=== PATIENT | female | born 1940 | race Caucasian/White ===

== ENCOUNTER → 2021-05-22 14:58 | Outpatient (CLI) | payer MEDICARE, MEDICAID, SELFPAY ==
--- NOTE | ~2021-05-22 | DEXA_ITS ---
Bone Density Report Name: KELL CARTER Age: 80 Sex: Female Ethnicity: Date of : 1940 Indication: postmenopausal; screening for osteoporosis; height loss; hysterectomy; Referring Provider: GABY DOWNS Study: Bone densitometry was performed. Exam Date: May 22, 2021 Accession number: [id number] Bone Density: Region BMD T-score Z-score Classification AP Spine (L1-L4) 0.938 -1.0 1.7 Normal Femoral Neck (Left) 0.682 -1.5 0.7 Osteopenia Total Hip (Left) 0.814 -1.1 1.0 Osteopenia Femoral Neck (Right) 0.697 -1.4 0.8 Osteopenia Total Hip (Right) 0.840 -0.8 1.2 Normal Total Hip Mean 0.827 -1.0 1.1 Normal World Health Organization criteria for BMD impression classify patients as: Normal (T-score at or above -1.0), Osteopenia (T-score between -1.0 and -2.5), or Osteoporosis (T-score at or below -2.5). 10-year Fracture Risk(1): Major Osteoporotic Fracture 13% Hip Fracture 3.0% Reported Risk Factors: [place] (), Neck BMD=0.682, BMI=33.4 (1) FRAX(R) Version 3.08. Fracture probability calculated for an untreated patient. Fracture probability may be lower if the patient has received treatment. Clinical Information Provided by Patient: Has used the following medications: Vitamin D, Calcium Has the following medical conditions: Hysterectomy, KIDNEY TRANSPLANT Patient maximum height was 63 Menopause Age: 39 Drinks caffeinated beverages Onset of menses at age 14 Number of children 4 Impression: The patient has low bone mass, based on the Left Femoral Neck T-score. The patient has an estimated ten-year risk of hip fracture of 3% and an estimated ten-year risk of major fracture of 13%, based on the WHO FRAX algorithm. Discussion: BONE DENSITY IS LOW AT ONE OR MORE SKELETAL SITES. THE PATIENT'S BMD AND CLINICAL RISK FACTORS CONTRIBUTE TO THIS PATIENT'S INCREASED RISK OF FRACTURE. This patient's lowest T-score is low at one or more skeletal sites. It meets the World Health Organization's (WHO) criteria for ?low bone mass? (T-score between -1.0 and -2.5). The patient's 10-year risk of hip fracture as calculated by FRAX exceeds the threshold where pharmacological therapy is recommended by the National Osteoporosis Foundation (NOF). However, all treatment decisions require clinical judgment and consideration of individual patient factors, including patient preferences, comorbidities, previous drug use, risk factors not captured in the FRAX model (e.g., frailty, falls, vitamin D deficiency, increased bone turnover, interval significant decline in bone density) and possible under or overestimation of fracture risk by FRAX. The patient should follow a healthful lifestyle (good nutrition with adequate calcium and vitamin D, and appropriate weight-bearing exercise). Follow-Up:
== END ==
PROVIDERS: PCP Pediatrics; Visit Provider Pediatrics
DX: Z78.0 Asymptomatic menopausal state (principal); M85.89 Other specified disorders of bone density and structure, multiple sites
CPT/HCPCS: 77080

== ENCOUNTER 2024-03-11 11:56 | Inpatient (IN) | payer MEDICARE, SELFPAY ==
[2024-03-11] VITALS (38 sets, daily range): BP systolic 119–159; BP diastolic 57–76; PULSE 60–72; RESP 13–21; TEMP 36.6–36.8; O2SAT 89–100; BMI 28.8
--- NOTE | ~2024-03-11 | XR_ITS ---
EXAMINATION: XR chest 1V portable DATE: 03/11/2024 12:31 INDICATION: Weakness. Dizziness. TECHNIQUE: A single frontal view of the chest was obtained. COMPARISON: Chest 2 views 08/16/2017 FINDINGS: There are airspace opacities in right lower lung zone and left mid and lower lung zones. Ca lcified right lung nodules and calcified right hilar lymph nodes are consistent with old granulomatou s disease. No pleural effusion or pneumothorax. The heart size is normal. There is a left chest wall pacer with leads in the right atrium and right ventricle. There are surgical clips in left axilla. IMPRESSION: 1. Airspace opacities in right lower lung zone and left mid and lower lung zones, consistent with ate lectasis versus pneumonia. Reviewed, dictated and finalized at location A. PLATER IMPRESSION: 1. Airspace opacities in right lower lung zone and left mid and lower lung zone s, consistent with atelectasis versus pneumonia.
--- NOTE | 2024-03-11 12:18 | ECG_ITS ---
Test Date: 2024-03-11 12:23:48 Measurements Intervals [place] Rate: 59 P: 0 AR: 0 QRS: -64 QRSD: 178 T: 107 QT: 522 QTc: 519 Interpretive Statements baseline atrial flutter ELECTRONIC VENTRICULAR PACEMAKER ABNORMAL RHYTHM ECG No previous ECG available for comparison Electronically Signed On 03-12-2024 09:56:39 [employer] by David Hernandez M.D.
[2024-03-11 13:16] LABS: Add Urine Microscopic? YES; Appearance Urine Cloudy (Clear); Bacteria Urine None Seen /hpf; Bilirubin Urine Negative (Negative); Blood Urine Negative (Negative); Color Urine Yellow (Yellow); Glucose Urine UA 1+ mg/dL (Negative); Ketones Urine Negative (Negative); Leukocyte Esterase Ur Trace LEU/UL (Negative); Nitrate Urine Negative (Negative); Non Pathogenic Casts 0-2; Protein Urine Negative (Negative); RBC Urine 0-2 /hpf (0-2); Specific Grav Ur 1.008 (1.001-1.035); Squamous Epithelial Cell Urine None Seen /hpf (Few); Urobilinogen Urine 0.2 mg/dL (<2.0); WBC Urine 0-5 /hpf (0-3); pH Urine 7.5 (5.0-9.0)
[2024-03-11] MEDS: MECLIZINE HCL 25 MG TABLET 50 MG PO (13:23)
[2024-03-11 13:42] LABS: Basophils Absolute Auto 0.1 K/mm3 (0.0-0.1); Basophils Percent Auto 0.6 % (0.2-1.2); Eosinophils Absolute Auto 0.1 K/mm3 (0-0.3); Eosinophils Percent Auto 0.8 % (0-4.4); Hematocrit 42.9 % (37.0-47.0); Hemoglobin 13.7 g/dL (12.0-15.0); Immature Granulocyte Absolute 0.03 K/mm3 (0.00-0.031); Immature Granulocyte Percent A 0.3 % (0-0.5); Lymphocytes Absolute Auto 1.41 K/mm3 (0.9-3.2); Mean Corpuscular HGB Conc 31.9 g/dl (32-36); Mean Corpuscular Hemoglobin 29.1 pg (26-34); Mean Corpuscular Volume 91.1 fl (80-100); Mean Platelet Volume 9.3 fl (7.4-10.4); Monocytes Absolute Auto 0.5 K/mm3 (0.1-0.6); Monocytes Percent Auto 4.8 % (2.6-8.5); Neutrophils Percent Auto 79.5 % (45.5-73.1); Platelet Count Result 328 k/mm3 (150-375); Red Blood Count 4.71 M/mm3 (4.2-5.4); Red Cell Distribution Width 14.1 % (11.5-14.5); White Blood Count 10.1 K/mm3 (4.5-10.0)
[2024-03-11 13:52] LABS: Alanine Aminotransferase 20 U/L (6-35); Albumin Level 4.2 g/dL (3.5-5.1); Alkaline Phosphatase 79 U/L (38-126); Anion Gap 5 mmol/L (4-12); Aspartate Amino Transferase 30 U/L (14-36); Bilirubin,Total 0.6 mg/dL (0.2-1.3); Blood Urea Nitrogen 18 mg/dL (7-17); Calcium 8.6 mg/dL (8.4-10.2); Carbon Dioxide 33 mmol/L (22-30); Chloride 96 mmol/L (98-107); Estimated Glomerular Filt Rate > 60; Glucose 81 mg/dL (65-110); Sodium 134 mmol/L (137-145)
--- NOTE | 2024-03-11 14:03 | ED.DIZZY ---
HPI - Dizziness General Chief Complaint: Dizziness Stated Complaint: dizzy/nausea Time Seen by Provider: 03/11/24 12:33 Source: patient and family Mode of arrival: EMS Limitations: language barrier (The patient is Czech-speaking) History of Present Illness HPI Narrative: This is an 83-year-old female, with history of kidney transplant and insulin-dependent diabetes, status post pacemaker placement for AFib on Eliquis, brought in by EMS from a grocery store for dizziness. The patient states she was seen by her primary care doctor recently for dizziness and prescribed meclizine. She has had only some relief with medication. She denies chest pain, shortness of breath, lightheadedness or loss of consciousness. She denies focal weakness, numbness or change/loss of vision/hearing. Related Data Home Medications ?Medication ?Instructions ?Recorded ?Confirmed ?Last Taken ?Type apixaban 5 mg tablet (Eliquis) 5 mg PO Q12H 03/11/24 03/11/24 03/10/24 History ascorbic acid (vitamin C) 500 mg 500 mg PO DAILY 03/11/24 03/11/24 Unknown History tablet (C-500) aspirin 81 mg capsule 81 mg PO DAILY 03/11/24 03/11/24 Unknown History atorvastatin 40 mg tablet 40 mg PO QPM 03/11/24 03/11/24 03/10/24 History blood sugar diagnostic (OneTouch 03/11/24 03/11/24 Unknown History Verio test strips) npomwdn-ooibhlqeb-wlkm 333 mg-133 1 tablet PO DAILY 03/11/24 03/11/24 Unknown History mg-5 mg tablet cholecalciferol (vitamin D3) 50 50 mcg PO DAILY 03/11/24 03/11/24 03/10/24 History mcg (2,000 unit) capsule (Vitamin D3) furosemide 20 mg tablet 40 mg PO DAILY 03/11/24 03/11/24 03/10/24 History gabapentin 300 mg capsule 300 mg PO HS 03/11/24 03/11/24 Unknown History insulin aspart U-100 100 unit/mL 7 unit subcut TID 03/11/24 03/11/24 Unknown History (3 mL) subcutaneous pen (Novolog FlexPen U-100 Insulin aspart) insulin degludec 100 unit/mL (3 50 unit subcut HS 03/11/24 03/11/24 Unknown History mL) subcutaneous pen (Tresiba FlexTouch U-100 insulin) lancets 33 gauge (OneTouch Delica 03/11/24 03/11/24 Unknown History Plus Lancet) losartan 25 mg tablet 25 mg PO DAILY 03/11/24 03/11/24 03/10/24 History magnesium 200 mg tablet 400 mg PO DAILY 03/11/24 03/11/24 Unknown History melatonin 5 mg tablet 5 mg PO HS 03/11/24 03/11/24 Unknown History metoprolol succinate 25 mg 25 mg PO Q12H 03/11/24 03/11/24 03/10/24 History tablet,extended release 24 hr mirabegron 50 mg tablet,extended 50 mg PO DAILY 03/11/24 03/11/24 Unknown History release 24 hr (Myrbetriq) multivitamin 1 tablet PO DAILY 03/11/24 03/11/24 03/10/24 History mycophenolate sodium 360 mg 360 mg PO Q12H 03/11/24 03/11/24 03/10/24 History tablet,delayed release omega 5-ujt-lsr-fish oil 1,000 mg 1 cap PO BID 03/11/24 03/11/24 Unknown History (120 mg-180 mg) capsule (Fish Oil) pantoprazole 40 mg tablet,delayed 40 mg PO DAILY 03/11/24 03/11/24 03/10/24 History release patiromer calcium sorbitex 8.4 8.4 g PO DAILY 03/11/24 03/11/24 Unknown History gram oral powder packet (Veltassa) semaglutide 0.25 mg or 0.5 mg (2 0.25 mg subcut WEEKLY 03/11/24 03/11/24 Unknown History mg/1.5 mL) subcutaneous pen injector (Ozempic) tacrolimus 0.5 mg capsule, 0.5 mg PO Q12H 03/11/24 03/11/24 03/10/24 History immediate-release tacrolimus 1 mg capsule, 1 mg PO Q12H 03/11/24 03/11/24 03/10/24 History immediate-release venlafaxine 150 mg 150 mg PO QPM 03/11/24 03/11/24 03/10/24 History capsule,extended release 24 hr Allergies Allergy/AdvReac Type Severity Reaction Status Date / Time Iodinated Contrast Media Allergy Unknown Hives/RASH Verified 03/11/24 18:18 Review of Systems Review of Systems: All systems reviewed & are unremarkable except as noted in HPI and below PMFSH Past Medical History Medical History Afib Diabetes mellitus Surgical History Surgical History Status post kidney transplant History of permanent cardiac pacemaker placement History of cardiac ablation for atrial fibrillation Family History Family History (Updated 03/11/24 @ 18:32 by Quintin Roche RN) Grandparent Cancer Grandparent Heart attack Heart disease Sibling Cancer Sibling Cancer Other Aneurysm Social History Social History Smoking status: Never smoker Alcohol intake: never Substance use: never Do You Feel Safe in your Home?: Yes Lack of Transportation: No Lack of Food: Never True Current Housing: I Have Housing Concerned About Future Housing: No Difficulty Paying Gas/Electric Bills: No Difficulty Paying for Meds: No Currently Unemployed: No Education: Never Attended/Kindergarten Only Difficulty w/ Childcare or Family Care: No Spiritual care concerns: No Exam Narrative: GENERAL: Well-developed, well-nourished, and in no acute distress. HEAD: Normocephalic, atraumatic. EYES: PERRLA and EOMI. Left-sided nystagmus ENT: Nares clear, no rhinorrhea or epistaxis. Mucous membranes moist. Oropharynx without tonsillar hypertrophy exudate or other lesions. Bilateral TMs pearly mcbride low bulging bilaterally, right greater than left NECK: Supple. No adenopathy or masses. No carotid bruits or JVD CHEST: Rales noted in the bilateral inferior posterior lung farr. No respiratory distress. No wheezes or rhonchi HEART: Regular rate and rhythm. No murmur heard. Normal peripheral pulses. ABDOMEN: Soft, nontender, nondistended, normal active bowel sounds. EXTREMITIES: Normal range of motion. No edema. SKIN: Warm, dry, no rash. NEURO: Alert and oriented x3. No focal deficit. Moving all 4 limbs spontaneously. HINTS exam elicits nystagmus with gaze to the left and is otherwise not concerning for central nystagmus. Cranial nerves 2-12 intact PSYCH: Normal mood and affect. Course Course Emergency Course: 14:00 - On arrival, staff noted the patient was hypoxic to 89% on room air. She was placed on 2 L O2. The patient was taken off of 2 L nasal cannula and observed. She was noted to desat to 87% with a good plus, then return to the mid 90s. BNP and troponin are pending, however I have increased suspicion for pneumonia. Will treat with antibiotics and discussed patient with hospitalist for admission. Patient's exam is not concerning for focal neural deficit. I am able to elicit nystagmus with extraocular movements. I suspect this is peripheral in nature. 15:16 - CBC demonstrates slightly elevated white blood cell count of 10.1 but is otherwise unremarkable. Chemistries demonstrate mildly elevated bicarb of 33, slightly elevated BNP of 1280 but is otherwise unremarkable, including a negative troponin. Urinalysis shows leukocyte esterase without other immediately concerning findings for a UTI. Chest x-ray shows changes concerning for pneumonia. EKG not concerning for ischemia. I discussed the patient with hospitalist, CLAUDE Cooper who accepts admission. Vital Signs Vital signs: Vital Signs Temperature 98.3 F 03/11/24 11:57 Pulse Rate 63 03/11/24 11:57 Respiratory Rate 17 03/11/24 11:57 Blood Pressure 119/57 L 03/11/24 11:57 Pulse Oximetry 89 L 03/11/24 11:57 Oxygen Delivery Room Air 03/11/24 11:57 Temperature 97.9 F 03/11/24 21:15 Pulse Rate 63 03/11/24 21:15 Respiratory Rate 16 03/11/24 21:15 Blood Pressure 158/67 H 03/11/24 21:15 Pulse Oximetry 97 03/11/24 21:15 Oxygen Delivery Nasal Cannula 03/11/24 17:40 Oxygen Flow Rate 2 03/11/24 17:40 MDM - Dizziness MDM Narrative Medical decision making narrative: Plan: Labs, imaging, EKG, troponin, reassess Differential Diagnosis Differential diagnosis: Likely benign paroxysmal positional vertigo and other (Viral upper respiratory infection, pneumonia, ACS, metabolic abnormality, Meniere's, other) Lab Data 03/11/24 13:34 03/11/24 13:34 Labs: Lab Results 03/11/24 03/11/24 03/11/24 Range/Units 13:05 13:34 13:34 WBC 10.1 H (4.5-10.0) K/mm3 RBC 4.71 (4.2-5.4) M/mm3 Hgb 13.7 (12.0-15.0) g/dL Hct 42.9 (37.0-47.0) % MCV 91.1 (80-100) fl MCH 29.1 (26-34) pg MCHC 31.9 L (32-36) g/dl RDW 14.1 (11.5-14.5) % Plt Count 328 (150-375) k/mm3 MPV 9.3 (7.4-10.4) fl Immature Gran % (Auto) 0.3 (0-0.5) % Neut % (Auto) 79.5 H (45.5-73.1) % Lymph % (Auto) 14.0 L (18.3-44.2) % [place] % (Auto) 4.8 (2.6-8.5) % Eos % (Auto) 0.8 (0-4.4) % Baso % (Auto) 0.6 (0.2-1.2) % Lymph # (Auto) 1.41 (0.9-3.2) K/mm3 [place] # (Auto) 0.5 (0.1-0.6) K/mm3 Eos # (Auto) 0.1 (0-0.3) K/mm3 Baso # (Auto) 0.1 (0.0-0.1) K/mm3 Abs Immat Gran (auto) 0.03 (0.00-0.031) K/mm3 Absolute Neuts (auto) 8.0 H (1.3-6.7) K/mm3 Absolute Nucleated RBC 0.000 (0.0-0.012) K/mm3 Nucleated RBC % 0.0 (0.0-0.2) % Sodium 134 L (137-145) mmol/L Potassium 4.0 (3.4-5.0) mmol/L Chloride 96 L (98-107) mmol/L Carbon Dioxide 33 H (22-30) mmol/L Anion Gap 5 (4-12) mmol/L BUN 18 H (7-17) mg/dL Creatinine 0.59 L (0.7-1.0) mg/dL Estim Creat Clear Calc Not Reportable Estimated GFR > 60 (59 - ) Glucose 81 (65-110) mg/dL Calcium 8.6 (8.4-10.2) mg/dL Total Bilirubin 0.6 (0.2-1.3) mg/dL AST 30 (14-36) U/L ALT 20 (6-35) U/L Alkaline Phosphatase 79 (38-126) U/L Troponin I Cancelled 0.014 NT-Pro-B Natriuret Pep 1280 H (19.9-100) pg/mL Total Protein (6.3-8.2) g/dL Albumin (3.5-5.1) g/dL Urine Color Yellow (Yellow) Urine Appearance Cloudy H (Clear) Urine pH 7.5 (5.0-9.0) Ur Specific [place] 1.008 (1.001-1.035) Urine Protein Negative (Negative) mg/dL Urine Glucose (UA) 1+ H (Negative) mg/dL Urine Ketones Negative (Negative) mg/dL Ur Blood (Man) Negative (Negative) Urine Nitrate Negative (Negative) Urine Bilirubin Negative (Negative) Urine Urobilinogen 0.2 (<2.0) mg/dL Leukocyte Esterase Rfl Trace H (Negative) BJ/UL Urine RBC 0-2 (0-2) /hpf Urine WBC 0-5 (0-3) /hpf Ur Squamous Epith Cells None seen (Few) /hpf Urine Bacteria None seen /hpf Urine Casts 0-2 03/11/24 Range/Units 13:34 WBC (4.5-10.0) K/mm3 RBC (4.2-5.4) M/mm3 Hgb (12.0-15.0) g/dL Hct (37.0-47.0) % MCV (80-100) fl MCH (26-34) pg MCHC (32-36) g/dl RDW (11.5-14.5) % Plt Count (150-375) k/mm3 MPV (7.4-10.4) fl Immature Gran % (Auto) (0-0.5) % Neut % (Auto) (45.5-73.1) % Lymph % (Auto) (18.3-44.2) % [place] % (Auto) (2.6-8.5) % Eos % (Auto) (0-4.4) % Baso % (Auto) (0.2-1.2) % Lymph # (Auto) (0.9-3.2) K/mm3 [place] # (Auto) (0.1-0.6) K/mm3 Eos # (Auto) (0-0.3) K/mm3 Baso # (Auto) (0.0-0.1) K/mm3 Abs Immat Gran (auto) (0.00-0.031) K/mm3 Absolute Neuts (auto) (1.3-6.7) K/mm3 Absolute Nucleated RBC (0.0-0.012) K/mm3 Nucleated RBC % (0.0-0.2) % Sodium (137-145) mmol/L Potassium (3.4-5.0) mmol/L Chloride (98-107) mmol/L Carbon Dioxide (22-30) mmol/L Anion Gap (4-12) mmol/L BUN (7-17) mg/dL Creatinine (0.7-1.0) mg/dL Estim Creat Clear Calc Estimated GFR (59 - ) Glucose (65-110) mg/dL Calcium (8.4-10.2) mg/dL Total Bilirubin (0.2-1.3) mg/dL AST (14-36) U/L ALT (6-35) U/L Alkaline Phosphatase (38-126) U/L Troponin I NT-Pro-B Natriuret Pep Cancelled (19.9-100) pg/mL Total Protein 7.0 (6.3-8.2) g/dL Albumin 4.2 (3.5-5.1) g/dL Urine Color (Yellow) Urine Appearance (Clear) Urine pH (5.0-9.0) Ur Specific [place] (1.001-1.035) Urine Protein (Negative) mg/dL Urine Glucose (UA) (Negative) mg/dL Urine Ketones (Negative) mg/dL Ur Blood (Man) (Negative) Urine Nitrate (Negative) Urine Bilirubin (Negative) Urine Urobilinogen (<2.0) mg/dL Leukocyte Esterase Rfl (Negative) BJ/UL Urine RBC (0-2) /hpf Urine WBC (0-3) /hpf Ur Squamous Epith Cells (Few) /hpf Urine Bacteria /hpf Urine Casts ECG Data EKG #1: Attestation: I personally reviewed and interpreted this ECG as follows: ECG completion date: 03/11/24 ECG completion time: 12:23 Prior ECG tracings: not available for review Interpretation: Ventricularly paced rhythm, rate 59, left axis deviation, no ST segment elevations or T-wave inversions concerning for ischemia by Sgarbossa criteria. Left bundle branch block with prolonged QTC of 519. Discharge Plan Discharge Clinical Impression: Hypoxia, Nystagmus Pneumonia Qualifiers: Pneumonia type: due to unspecified organism Laterality: unspecified laterality Lung location: lower lobe of lung Qualified Code(s): J18.9 - Pneumonia, unspecified organism Patient Disposition: Still a Patient Condition: Guarded Prognosis Time of Disposition: 15:16
[2024-03-11 14:18] LABS: NT Pro B Type Natriuretic Pept 1280 pg/mL (19.9-100)
[2024-03-11 14:34] LABS: Troponin I 0.014 ng/mL (0.000-0.034)
[2024-03-11 16:39] LABS: Influenza A QL RT-PCR Negative (Negative); Influenza B QL RT-PCR Negative (Negative); RSV RNA, RT-PCR Negative (Negative); SARS-CoV-2 RNA PCR Negative (Negative)
[2024-03-11] MEDS: DOXYCYCLINE HYCLATE 100 MG TABLET PO (16:41)
[2024-03-11] MEDS: CEFEPIME 2 GM/NS 50 ML 2 GM/50 ML BAG IVPB (16:41)
--- NOTE | 2024-03-11 18:00 | ADMGEN ---
This patient, Jasmyne Boogie, was admitted to 2 Medical Room 256-. Patient/family oriented to hospital policies and general routines including ID bracelet, bed and alarms, visiting hours, pain management, procedures, bathroom and other care routines, personal items, smoking policy, room service/diet, and visiting hours. Information on how to activate the Rapid Response Team has been discussed. Patient/Family are encouraged to report perceived risks to care and to ask questions if they do not understand what they are told or what they should do.
[2024-03-11 18:04] LABS: Glucose Point of Care 51 mg/dl (65-105)
--- NOTE | 2024-03-11 18:40 | P.HP_ITS ---
H&P: HPI History of Present Illness Date/Time: 03/11/24 16:00 Chief Complaint: Dizzy. Narrative: This is a pleasant 83-year-old Sinhala speaking female with history of insulin- dependent type 2 diabetes mellitus, coronary artery disease, hypertension, hyperlipidemia, paroxysmal atrial fibrillation on chronic anticoagulation, breast cancer, and kidney transplant who presented to the emergency department via EMS from a local establishment for evaluation of dizziness. The patient provides the following history with the aid of her daughter who is translating. For the last several days the patient has had pressure in her sinuses and the back of her neck as well as intermittent dizziness. Coincidentally she had a routine appointment with her primary care provider yesterday at which time she was prescribed meclizine and an antibiotic for presumed sinusitis. This morning the patient felt well enough to go shopping with her daughter and while at the store she began to feel weak, lightheaded, dizzy, nauseated, and warm. Daughter reports that the patient was pale and clammy and she gave the patient orange juice as she was concerned that her glucose perhaps had dropped. Within 5 minutes she was still feeling poorly and they called 911. On EMS arrival her blood pressure was stable glucose was reportedly 106. At the time my evaluation patient feels okay and she denies feelings of dizziness, vertigo, fever, chills, sweats, sore throat, cough, chest pain, pleuritic pain, palpitations, current nausea, vomiting, diarrhea, and dysuria. She also denies focal weakness, paresthesias, visual changes, facial droop, and difficulty speaking and swallowing. In the ED: SpO2 was 89% on arrival and her other vital signs were normal. Labs were significant for WBC count of 10.1, sodium 134, chloride 96, carbon dioxide 33, BUN 18, creatinine 0.50, glucose 81, troponin less than 0.012, proBNP 1280. Urinalysis was positive for 1+ glucose and trace leukocyte esterase. Influenza, RSV, and COVID were negative. Chest x-ray showed airspace opacities in the right lower lung zone in mid left and lower lung zones consistent with atelectasis versus pneumonia. EKG showed a ventricular paced rhythm. She was given a dose of meclizine, cefepime 2 g, doxycycline 100 mg and she is being admitted in this setting for further treatment and evaluation. Review of Systems Review of Systems: 12 systems were reviewed and are negativ e except for as per HPI. FORMERLY [facility] Past Medical History Medical History (Updated 03/11/24 @ 21:50 by Patricia Cooper PA-C) Breast cancer Coronary artery disease Chronic anticoagulation Insulin dependent type 2 diabetes mellitus Paroxysmal atrial fibrillation Surgical History Surgical History (Updated 03/11/24 @ 21:45 by Patricia Cooper PA-C) History of mastectomy History of hysterectomy History of kidney transplant (2011) History of coronary artery stent placement History of permanent cardiac pacemaker placement History of cardiac ablation for atrial fibrillation Family History Family History Grandparent Cancer Grandparent Heart attack Heart disease Sibling Cancer Sibling Cancer Other Aneurysm Social History Social History (Updated 03/11/24 @ 21:42 by Patricia Cooper PA-C) Social History: Surrogate medical decision maker: Rima Leiva, daughter ([phone]). Code status: Full code. Smoking status: Never smoker Alcohol intake: never Substance use: never Do You Feel Safe in your Home?: Yes Lack of Transportation: No Lack of Food: Never True Current Housing: I Have Housing Concerned About Future Housing: No Difficulty Paying Gas/Electric Bills: No Difficulty Paying for Meds: No Currently Unemployed: No Education: Never Attended/Kindergarten Only Difficulty w/ Childcare or Family Care: No Spiritual care concerns: No Meds Home Medications and Allergies Home Medications ?Medication ?Instructions ?Recorded ?Confirmed ?Type apixaban 5 mg tablet (Eliquis) 5 mg PO Q12H 03/11/24 03/11/24 History ascorbic acid (vitamin C) 500 mg 500 mg PO DAILY 03/11/24 03/11/24 History tablet (C-500) aspirin 81 mg capsule 81 mg PO DAILY 03/11/24 03/11/24 History atorvastatin 40 mg tablet 40 mg PO QPM 03/11/24 03/11/24 History blood sugar diagnostic (OneTouch 03/11/24 03/11/24 History Verio test strips) voaleuj-plybhtpaj-gekr 333 mg-133 1 tablet PO DAILY 03/11/24 03/11/24 History mg-5 mg tablet cholecalciferol (vitamin D3) 50 50 mcg PO DAILY 03/11/24 03/11/24 History mcg (2,000 unit) capsule (Vitamin D3) furosemide 20 mg tablet 40 mg PO DAILY 03/11/24 03/11/24 History gabapentin 300 mg capsule 300 mg PO HS 03/11/24 03/11/24 History insulin aspart U-100 100 unit/mL 7 unit subcut TID 03/11/24 03/11/24 History (3 mL) subcutaneous pen (Novolog FlexPen U-100 Insulin aspart) insulin degludec 100 unit/mL (3 50 unit subcut HS 03/11/24 03/11/24 History mL) subcutaneous pen (Tresiba FlexTouch U-100 insulin) lancets 33 gauge (OneTouch Delica 03/11/24 03/11/24 History Plus Lancet) losartan 25 mg tablet 25 mg PO DAILY 03/11/24 03/11/24 History magnesium 200 mg tablet 400 mg PO DAILY 03/11/24 03/11/24 History melatonin 5 mg tablet 5 mg PO HS 03/11/24 03/11/24 History metoprolol succinate 25 mg 25 mg PO Q12H 03/11/24 03/11/24 History tablet,extended release 24 hr mirabegron 50 mg tablet,extended 50 mg PO DAILY 03/11/24 03/11/24 History release 24 hr (Myrbetriq) multivitamin 1 tablet PO DAILY 03/11/24 03/11/24 History mycophenolate sodium 360 mg 360 mg PO Q12H 03/11/24 03/11/24 History tablet,delayed release omega 0-lym-szl-fish oil 1,000 mg 1 cap PO BID 03/11/24 03/11/24 History (120 mg-180 mg) capsule (Fish Oil) pantoprazole 40 mg tablet,delayed 40 mg PO DAILY 03/11/24 03/11/24 History release patiromer calcium sorbitex 8.4 8.4 g PO DAILY 03/11/24 03/11/24 History gram oral powder packet (Veltassa) semaglutide 0.25 mg or 0.5 mg (2 0.25 mg subcut WEEKLY 03/11/24 03/11/24 History mg/1.5 mL) subcutaneous pen injector (Ozempic) tacrolimus 0.5 mg capsule, 0.5 mg PO Q12H 03/11/24 03/11/24 History immediate-release tacrolimus 1 mg capsule, 1 mg PO Q12H 03/11/24 03/11/24 History immediate-release venlafaxine 150 mg 150 mg PO QPM 03/11/24 03/11/24 History capsule,extended release 24 hr Allergies Allergy/AdvReac Type Severity Reaction Status Date / Time Iodinated Contrast Media Allergy Unknown Hives/RASH Verified 03/11/24 18:18 Vital Signs Vital Signs - 24 hr 03/11/24 11:57 03/11/24 12:05 03/11/24 12:06 Temperature 98.3 F Pulse Rate 63 63 62 Respiratory Rate 17 15 21 H Blood Pressure 119/57 L 119/57 L Pulse Oximetry 89 L 93 91 Oxygen Delivery Room Air Oxygen Flow Rate 03/11/24 12:14 03/11/24 12:15 03/11/24 12:30 Temperature Pulse Rate 63 65 Respiratory Rate 20 18 Blood Pressure Pulse Oximetry 96 97 99 Oxygen Delivery Oxygen Flow Rate 03/11/24 12:31 03/11/24 12:45 03/11/24 13:00 Temperature Pulse Rate 63 60 61 Respiratory Rate 18 18 14 Blood Pressure 143/59 H Pulse Oximetry 97 100 94 Oxygen Delivery Oxygen Flow Rate 03/11/24 13:01 03/11/24 13:15 03/11/24 13:30 Temperature Pulse Rate 60 61 65 Respiratory Rate 20 18 15 Blood Pressure 154/76 H Pulse Oximetry 96 Oxygen Delivery Oxygen Flow Rate 03/11/24 13:35 03/11/24 13:45 03/11/24 14:00 Temperature Pulse Rate 63 63 65 Respiratory Rate 18 17 19 Blood Pressure 150/70 H Pulse Oximetry 93 96 Oxygen Delivery Oxygen Flow Rate 03/11/24 14:01 03/11/24 14:15 03/11/24 14:30 Temperature Pulse Rate 65 64 70 Respiratory Rate 14 20 21 H Blood Pressure 149/65 H 159/67 H Pulse Oximetry 97 92 94 Oxygen Delivery Oxygen Flow Rate 03/11/24 14:31 03/11/24 14:32 03/11/24 14:45 Temperature Pulse Rate 67 64 63 Respiratory Rate 15 13 18 Blood Pressure 151/71 H Pulse Oximetry 93 93 100 Oxygen Delivery Oxygen Flow Rate 03/11/24 15:00 03/11/24 15:15 03/11/24 15:30 Temperature Pulse Rate 61 63 61 Respiratory Rate 19 17 18 Blood Pressure Pulse Oximetry 100 100 Oxygen Delivery Oxygen Flow Rate 03/11/24 15:45 03/11/24 16:00 03/11/24 16:15 Temperature Pulse Rate 63 62 61 Respiratory Rate 19 18 18 Blood Pressure Pulse Oximetry 100 Oxygen Delivery Oxygen Flow Rate 03/11/24 16:29 03/11/24 16:30 03/11/24 16:31 Temperature Pulse Rate 64 62 65 Respiratory Rate 20 19 18 Blood Pressure 134/62 134/64 Pulse Oximetry 97 98 100 Oxygen Delivery Oxygen Flow Rate 03/11/24 16:45 03/11/24 17:00 03/11/24 17:01 Temperature Pulse Rate 63 63 62 Respiratory Rate 21 H 19 18 Blood Pressure 143/65 H Pulse Oximetry 97 97 Oxygen Delivery Oxygen Flow Rate 03/11/24 17:15 03/11/24 17:40 Temperature Pulse Rate 60 Respiratory Rate 20 Blood Pressure Pulse Oximetry 100 99 Oxygen Delivery Nasal Cannula Oxygen Flow Rate 2 Exam Narrative: General: Well-developed, nontoxic-appearing elderly female appearing younger than her stated age sitting up in bed in no acute distress. Weight: 73.7 kg. BMI: 28.8. HEENT: PERRL, EOMI. Sclera anicteric. Per ED physician, mild bulging of the tympanic membranes bilaterally, right greater than left. Mild left-sided nystagmus. Oral mucosa moist. Oropharynx clear. Neck: Supple. Respiratory: Lungs are clear to auscultation bilaterally. Cardiovascular: Regular rate and rhythm with S1-S2. Pacemaker in left anterior chest. Gastrointestinal: Abdomen is soft, nontender, and nondistended with positive bowel sounds. Skin: Warm and dry. No rash or lesions on limited exam. Extremities: No cyanosis, clubbing, or edema. Radial and pedal pulses intact. Neurological: Alert. No facial asymmetry. Speech is clear. No pronator drift. Cranial nerves 2-12 are grossly intact. No gross focal deficits to casual conversation. Strength 5/5 in upper and lower extremities. Psychiatric: Pleasant and cooperative with normal mood and affect. She is in good spirits. H&P: Results Labs Labs: Short CBC 03/11/24 Range/Units 13:34 WBC 10.1 H (4.5-10.0) K/mm3 Hgb 13.7 (12.0-15.0) g/dL Hct 42.9 (37.0-47.0) % Plt Count 328 (150-375) k/mm3 BMP 03/11/24 13:34 Sodium 134 L Potassium 4.0 Chloride 96 L Carbon Dioxide 33 H BUN 18 H Creatinine 0.59 L Glucose 81 Calcium 8.6 Cardiac Enzymes 03/11/24 03/11/24 Range/Units 13:34 13:34 Troponin I Cancelled 0.014 Liver Function 03/11/24 Range/Units 13:34 Total Bilirubin 0.6 (0.2-1.3) mg/dL AST 30 (14-36) U/L ALT 20 (6-35) U/L Alkaline Phosphatase 79 (38-126) U/L Albumin 4.2 (3.5-5.1) g/dL Urine 03/11/24 Range/Units 13:05 Urine Color Yellow (Yellow) Urine Appearance Cloudy H (Clear) Urine pH 7.5 (5.0-9.0) Ur Specific [place] 1.008 (1.001-1.035) Urine Protein Negative (Negative) mg/dL Urine Glucose (UA) 1+ H (Negative) mg/dL Assessment and Plan Assessment and plan (1) Hypoxia: Code(s): R09.02 - Hypoxemia Status: Acute (2) Pneumonia: Qualifiers: Laterality: unspecified laterality Lung location: lower lobe of lung Pneumonia type: due to unspecified organism Qualified Code(s): J18.9 - Pneumonia, unspecified organism Code(s): J18.9 - Pneumonia, unspecified organism Status: Acute (3) Hypoglycemia: Code(s): E16.2 - Hypoglycemia, unspecified Status: Acute (4) Near syncope: Code(s): R55 - Syncope and collapse Status: Acute (5) Insulin dependent type 2 diabetes mellitus: Code(s): E11.9 - Type 2 diabetes mellitus without complications; 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 Labs, imaging, EKG, and all reports were personally reviewed. The patient reports feeling lightheaded, dizzy, warm, and nauseated. Differential diagnosis includes near syncope, vasovagal response, and hypoglycemia. Glucose was 106 on EMS arrival however high dropped to 81 by the time she got to the hospital and she may have very well been hypoglycemic. Blood pressures have been stable since arrival. Check orthostatic vital signs x1. Monitor on telemetry overnight though cardiac dysrhythmia seems unlikely will interrogate her pacemaker. She was hypoxic on arrival in chest x-ray shows findings suggestive of pneumonia for which we will continue with antibiotics. She is not having a cough but does endorse having quite a bit of sinus pressure the last several days. She has some mild nystagmus on exam which is likely peripheral; no gross focal deficits were noted on neurologic exam. Hold insulin tonight as her glucose dropped to 51 this evening. Renal function is good. Continue anti-rejection medications. The rest of her home medications will be reviewed and resumed as appropriate. Findings and treatment plan were discussed with the patient. Questions were solicited and answered to satisfaction. The patient's medical management will be taken over by the hospitalist team in a.m. Quality VTE Prophylaxis VTE prophylaxis: pharmacologic ordered (on apixaban) Hospitalist [facility] Advance Care Plan I have confirmed that the patient's Advanced Care Plan is present, code status is documented, or surrogate decision maker is listed in patient medical record.: Yes Medication Reconciliation I have utilized all available resources to obtain, update and review the patients current medications (includes all prescriptions, OTC, herbals, cannabis, and nutritional supplements).: Yes
[2024-03-11 18:48] LABS: Glucose Point of Care 86 mg/dl (65-105)
[2024-03-11 18:54] LABS: Troponin I < 0.012 ng/mL (0.000-0.034)
[2024-03-11 21:34] LABS: Glucose Point of Care 169 mg/dl (65-105)
[2024-03-11] MEDS: APIXABAN 5 MG TABLET PO (22:48)
[2024-03-11] MEDS: METOPROLOL SUCCINATE EXT REL 25 MG TABCR PO (22:48)
[2024-03-11 22:53] LABS: Hemoglobin A1C 6.8 % (<5.7)
[2024-03-11] MEDS: DOXYCYCLINE HYCLATE 50 MG CAPSULE PO (23:02)
[2024-03-12] VITALS (16 sets, daily range): BP systolic 92–150; BP diastolic 45–61; PULSE 60–81; RESP 16–20; TEMP 36.4–36.6; O2SAT 96–99
[2024-03-12 05:17] LABS: Basophils Absolute Auto 0.1 K/mm3 (0.0-0.1); Eosinophils Absolute Auto 0.2 K/mm3 (0-0.3); Eosinophils Percent Auto 2.8 % (0-4.4); Hematocrit 38.8 % (37.0-47.0); Hemoglobin 12.6 g/dL (12.0-15.0); Immature Granulocyte Absolute 0.02 K/mm3 (0.00-0.031); Immature Granulocyte Percent A 0.2 % (0-0.5); Lymphocytes Absolute Auto 2.44 K/mm3 (0.9-3.2); Mean Corpuscular HGB Conc 32.5 g/dl (32-36); Mean Corpuscular Hemoglobin 29.1 pg (26-34); Mean Corpuscular Volume 89.6 fl (80-100); Mean Platelet Volume 9.1 fl (7.4-10.4); Monocytes Absolute Auto 0.8 K/mm3 (0.1-0.6); Monocytes Percent Auto 9.2 % (2.6-8.5); Neutrophils Absolute Auto 4.6 K/mm3 (1.3-6.7); Neutrophils Percent Auto 56.8 % (45.5-73.1); Platelet Count Result 351 k/mm3 (150-375); Red Blood Count 4.33 M/mm3 (4.2-5.4); Red Cell Distribution Width 14.1 % (11.5-14.5); White Blood Count 8.1 K/mm3 (4.5-10.0)
[2024-03-12 05:37] LABS: Anion Gap 4 mmol/L (4-12); Blood Urea Nitrogen 17 mg/dL (7-17); Calcium 8.1 mg/dL (8.4-10.2); Carbon Dioxide 32 mmol/L (22-30); Chloride 99 mmol/L (98-107); Estimated CRCL calculation 64 ml/min; Estimated Glomerular Filt Rate > 60; Glucose 57 mg/dL (65-110); Magnesium 1.6 mg/dL (1.6-2.3); Potassium 3.7 mmol/L (3.4-5.0); Sodium 135 mmol/L (137-145)
[2024-03-12 06:04] LABS: Glucose Point of Care 85 mg/dl (65-105)
[2024-03-12 06:04] LABS: Glucose Point of Care 64 mg/dl (65-105)
--- NOTE | 2024-03-12 07:48 | PM.IMPN ---
Progress Note: A&P Assessment and Plan (1) Hypoxia: Code(s): R09.02 - Hypoxemia Status: Acute (2) Pneumonia: Qualifiers: Laterality: unspecified laterality Lung location: lower lobe of lung Pneumonia type: due to unspecified organism Qualified Code(s): J18.9 - Pneumonia, unspecified organism Code(s): J18.9 - Pneumonia, unspecified organism Status: Acute Assessment and Plan: Started on empiric Cefepime x1 dose, changed to Ceftiraxone --continue Ceftriaxone --Add azithro 03/11 chest xray Airspace opacities in right lower lung zone and left mid and lower lung zones, consistent with atelectasis versus pneumonia (3) Near syncope: Code(s): R55 - Syncope and collapse Status: Acute Assessment and Plan: Several days of sinus and neck pressure before admission., intermittent dizziness. Started on meclizine yesterday by PCP. At the store she felt weak, lightheaded, dizzy, nauseated, and warm. Pale and clammy. Nystagmus noted on exam. Symptoms could be vagal with sweating and feeling of warmth, or could be 2/2 hypoglycemia --Pacemaker interrogation. Patient unsure about type of pacer --orthostatic VS --Monitor on tele (4) Insulin dependent type 2 diabetes mellitus: Code(s): E11.9 - Type 2 diabetes mellitus without complications; Z79.4 - remote computer terminal operator (current) use of insulin Status: Acute Assessment and Plan: Tresiba 25 units hs, Novolog 7units TID, semaglutide 0.25mg weekly --Lantus held AM 03/12, resume 10 units in the morning 03/13 --Resume mealtime insulin when able -- SSI --clinical document improvement educator and title search manager consults (5) Paroxysmal atrial fibrillation: Code(s): I48.0 - Paroxysmal atrial fibrillation Status: Acute Assessment and Plan: Home meds: Metoprolol 25mg q12, Eliquis 5mg BID --continuing home meds (6) Chronic anticoagulation: Code(s): Z79.01 - remote computer terminal operator (current) use of anticoagulants Status: Acute Assessment and Plan: On eliquis 5mg BID (7) Status post kidney transplant: Code(s): Z94.0 - Kidney transplant status Status: Acute Assessment and Plan: Home meds: mycophenolate 360mg BID, tacrolimus 1.5mg q12 --Continue home meds --tacrolimus level in AM --Follow BMP daily Plan Time Spent With Patient Time: 58 minutes Subjective Date/time seen: 03/12/24 18:35 Interval history: Brandon ok today, no dizziness. Blood pressure soft, 92/51 Blood sugars low this morning, trending up during the day Not sure type of pacemaker, calling daughter to clarify Review of Systems Review of Systems: 12 systems were reviewed and are negative except for as per HPI. Exam Narrative: General: Well-developed, nontoxic-appearing elderly female appearing younger than her stated age sitting up in bed in no acute distress. Weight: 73.7 kg. BMI: 28.8. HEENT: PERRL, EOMI. Sclera anicteric. Per ED physician, mild bulging of the tympanic membranes bilaterally, right greater than left. Mild left-sided nystagmus. Oral mucosa moist. Oropharynx clear. Neck: Supple. Respiratory: Lungs are clear to auscultation bilaterally. Cardiovascular: Regular rate and rhythm with S1-S2. Pacemaker in left anterior chest. Gastrointestinal: Abdomen is soft, nontender, and nondistended with positive bowel sounds. Skin: Warm and dry. No rash or lesions on limited exam. Extremities: No cyanosis, clubbing, or edema. Radial and pedal pulses intact. Neurological: Alert. No facial asymmetry. Speech is clear. No pronator drift. Cranial nerves 2-12 are grossly intact. No gross focal deficits to casual conversation. Strength 5/5 in upper and lower extremities. Psychiatric: Pleasant and cooperative with normal mood and affect. She is in good spirits. Objective Data Vital Signs Vital Signs: Vital Signs - 24 hr 03/11/24 11:57 03/11/24 12:05 03/11/24 12:06 Temperature 98.3 F Pulse Rate 63 63 62 Respiratory Rate 17 15 21 H Blood Pressure 119/57 L 119/57 L Pulse Oximetry 89 L 93 91 Oxygen Delivery Room Air Oxygen Flow Rate 03/11/24 12:14 03/11/24 12:15 03/11/24 12:30 Temperature Pulse Rate 63 65 Respiratory Rate 20 18 Blood Pressure Pulse Oximetry 96 97 99 Oxygen Delivery Oxygen Flow Rate 03/11/24 12:31 03/11/24 12:45 03/11/24 13:00 Temperature Pulse Rate 63 60 61 Respiratory Rate 18 18 14 Blood Pressure 143/59 H Pulse Oximetry 97 100 94 Oxygen Delivery Oxygen Flow Rate 03/11/24 13:01 03/11/24 13:15 03/11/24 13:30 Temperature Pulse Rate 60 61 65 Respiratory Rate 20 18 15 Blood Pressure 154/76 H Pulse Oximetry 96 Oxygen Delivery Oxygen Flow Rate 03/11/24 13:35 03/11/24 13:45 03/11/24 14:00 Temperature Pulse Rate 63 63 65 Respiratory Rate 18 17 19 Blood Pressure 150/70 H Pulse Oximetry 93 96 Oxygen Delivery Oxygen Flow Rate 03/11/24 14:01 03/11/24 14:15 03/11/24 14:30 Temperature Pulse Rate 65 64 70 Respiratory Rate 14 20 21 H Blood Pressure 149/65 H 159/67 H Pulse Oximetry 97 92 94 Oxygen Delivery Oxygen Flow Rate 03/11/24 14:31 03/11/24 14:32 03/11/24 14:45 Temperature Pulse Rate 67 64 63 Respiratory Rate 15 13 18 Blood Pressure 151/71 H Pulse Oximetry 93 93 100 Oxygen Delivery Oxygen Flow Rate 03/11/24 15:00 03/11/24 15:15 03/11/24 15:30 Temperature Pulse Rate 61 63 61 Respiratory Rate 19 17 18 Blood Pressure Pulse Oximetry 100 100 Oxygen Delivery Oxygen Flow Rate 03/11/24 15:45 03/11/24 16:00 03/11/24 16:15 Temperature Pulse Rate 63 62 61 Respiratory Rate 19 18 18 Blood Pressure Pulse Oximetry 100 Oxygen Delivery Oxygen Flow Rate 03/11/24 16:29 03/11/24 16:30 03/11/24 16:31 Temperature Pulse Rate 64 62 65 Respiratory Rate 20 19 18 Blood Pressure 134/62 134/64 Pulse Oximetry 97 98 100 Oxygen Delivery Oxygen Flow Rate 03/11/24 16:45 03/11/24 17:00 03/11/24 17:01 Temperature Pulse Rate 63 63 62 Respiratory Rate 21 H 19 18 Blood Pressure 143/65 H Pulse Oximetry 97 97 Oxygen Delivery Oxygen Flow Rate 03/11/24 17:15 03/11/24 17:40 03/11/24 20:00 Temperature Pulse Rate 60 72 Respiratory Rate 20 Blood Pressure Pulse Oximetry 100 99 Oxygen Delivery Nasal Cannula Oxygen Flow Rate 2 03/11/24 21:15 03/11/24 22:48 03/12/24 00:05 Temperature 97.9 F Pulse Rate 63 72 62 Respiratory Rate 16 Blood Pressure 158/67 H Pulse Oximetry 97 Oxygen Delivery Oxygen Flow Rate 03/12/24 04:00 03/12/24 05:46 Temperature 97.5 F L Pulse Rate 61 60 Respiratory Rate 16 Blood Pressure 129/53 L Pulse Oximetry 98 Oxygen Delivery Oxygen Flow Rate Intake/Output Intake/Output: Intake & Output 03/09/24 03/10/24 03/11/24 03/12/24 23:59 23:59 23:59 23:59 Intake Total 290 450 Balance 290 450 Meds/Results Medications: Active Medications Generic Name Dose Route Start Last Admin Trade Name Freq PRN Reason Stop Dose Admin Acetaminophen 650 mg 03/11/24 15:16 Acetaminophen 325 Mg Tablet PO Q4H PRN Mild Pain (1-3) or Fever Apixaban 5 mg 03/11/24 21:50 03/11/24 22:48 Apixaban 5 Mg Tablet PO 5 mg Q12HR [facility] Administration Ascorbic Acid 500 mg 03/12/24 09:00 Ascorbic Acid 500 Mg Tablet PO DAILY [facility] Aspirin 81 mg 03/12/24 09:00 Aspirin 81 Mg Enteric Tablet PO DAILY [facility] Atorvastatin Calcium 40 mg 03/12/24 18:00 Atorvastatin 40 Mg Tablet PO QPM [facility] Dextrose 12.5 gm 03/11/24 21:48 Dextrose 50% 25 Gm/50 Ml Syringe IV PUSH PRN PRN Hypoglycemia Protocol Doxycycline Hyclate 50 mg 03/11/24 22:35 03/11/24 23:02 Doxycycline Hyclate 50 Mg Capsule PO 50 mg Q12HR [facility] Administration Fish Oil 1 gm 03/12/24 09:00 Osborne 3 Polyunsat Fatty Acids 1 Gm Cap PO BID [facility] Furosemide 40 mg 03/12/24 09:00 Furosemide 40 Mg Tablet PO DAILY [facility] Gabapentin 300 mg 03/12/24 21:00 Gabapentin 300 Mg Capsule PO HS [facility] Glucagon 1 mg 03/11/24 21:48 Glucagon For Inj 1 Mg Vial IM PRN PRN Hypoglycemia Protocol Glucose 15 gm 03/11/24 21:48 Glucose Oral Gel 15 Gm Of Glucse In 37.5 Gm Tube PO PRN PRN Hypoglycemia Protocol Dextrose 1,000 mls @ 100 mls/hr 03/11/24 21:48 Dextrose 5% 1,000 Ml IVPB PRN PRN Hypoglycemia Protocol Ceftriaxone Sodium 1 gm in 50 mls @ 100 mls/hr 03/11/24 22:00 03/11/24 22:48 Rocephin 1 Gm/Ns 50 Ml IVPB 100 mls/hr Q24H [facility] Administration Losartan Potassium 25 mg 03/12/24 09:00 Losartan Potassium 25 Mg Tablet PO DAILY [facility] Magnesium Oxide 400 mg 03/12/24 09:00 Magnesium Oxide 400 Mg Tablet PO DAILY [facility] Melatonin 5 mg 03/12/24 21:00 Melatonin 5 Mg Tablet PO HS [facility] Metoprolol Succinate 25 mg 03/11/24 21:50 03/11/24 22:48 Metoprolol Succinate Ext Rel 25 Mg Tabcr PO 25 mg Q12HR [facility] Administration Mirabegron 50 mg 03/12/24 09:00 Mirabegron 50 Mg Er Tablet PO DAILY [facility] Miscellaneous Information 0 each 03/11/24 00:[address] Nonform Can Pt Bring From Home? XX 04/10/24 00:00 CLARIFY [facility] Miscellaneous Information 0 each 03/11/24 00:01 Patiromer Nonform Can Pt Bring From Home? XX 04/10/24 00:00 CLARIFY [facility] Miscellaneous Information 0 each 03/11/24 00:01 Tacrolimus 1mg Nonform Can Pt Bring From Home? XX 04/10/24 00:00 CLARIFY [facility] Miscellaneous Information 0 each 03/12/24 00:01 Tacrolimus 0.5mg Nonform Can Pt Bring From Home? XX 04/11/24 00:00 CLARIFY [facility] Multivitamins Therapeutic 1 tablet 03/12/24 09:00 Multivitamins Therapeutic Tab (*Bkc) PO DAILY [facility] Non-Formulary Medication 360 mg 03/11/24 22:00 Mycophenolate Sodium PO 04/10/24 21:59 Q12H [facility] Non-Formulary Medication 8.4 gm 03/12/24 09:00 Patiromer Calcium Sorbitex [Veltassa] PO 04/11/24 08:59 DAILY [facility] Non-Formulary Medication 1 each 03/11/24 22:23 Nonformulary Nutritional Supplement XX 03/12/24 22:22 PRN PRN PROTOCOL Non-Formulary Medication 1 mg 03/11/24 22:30 Tacrolimus PO 04/10/24 22:29 Q12H [facility] Nonformulary Drug ( 0.5 mg 03/11/24 22:45 Tacrolimus 0.5mg PO 04/10/24 22:44 Capsule) Q12H [facility] Pantoprazole Sodium 40 mg 03/12/24 09:00 Pantoprazole 40 Mg Tablet PO DAILY [facility] Venlafaxine HCl 150 mg 03/12/24 18:00 Venlafaxine Hcl Xr 75 Mg Cap.Er.24h PO QPM [facility] Vitamin D 2,000 units 03/12/24 09:00 Cholecalciferol 1,000 Units Tablet PO DAILY [facility] Radiology Results: ITS Impressions Chest X-Ray 03/11/24 12:34 IMPRESSION: 1. Airspace opacities in right lower lung zone and left mid and lower lung zones, consistent with atelectasis versus pneumonia. Labs Labs: Laboratory Results - last 24 hr 03/11/24 03/11/24 03/11/24 13:05 13:34 13:34 WBC 10.1 H RBC 4.71 Hgb 13.7 Hct 42.9 MCV 91.1 MCH 29.1 MCHC 31.9 L RDW 14.1 Plt Count 328 MPV 9.3 Immature Gran % (Auto) 0.3 Neut % (Auto) 79.5 H Lymph % (Auto) 14.0 L Grimes % (Auto) 4.8 Eos % (Auto) 0.8 Baso % (Auto) 0.6 Lymph # (Auto) 1.41 Grimes # (Auto) 0.5 Eos # (Auto) 0.1 Baso # (Auto) 0.1 Abs Immat Gran (auto) 0.03 Absolute Neuts (auto) 8.0 H Absolute Nucleated RBC 0.000 Nucleated RBC % 0.0 Sodium 134 L Potassium 4.0 Chloride 96 L Carbon Dioxide 33 H Anion Gap 5 BUN 18 H Creatinine 0.59 L Estim Creat Clear Calc Not Reportable Estimated GFR > 60 Glucose 81 POC Capillary Glucose Hemoglobin A1c Calcium 8.6 Magnesium Total Bilirubin 0.6 AST 30 ALT 20 Alkaline Phosphatase 79 Troponin I Cancelled 0.014 NT-Pro-B Natriuret Pep 1280 H Total Protein Albumin Urine Color Yellow Urine Appearance Cloudy H Urine pH 7.5 Ur Specific Laughlin 1.008 Urine Protein Negative Urine Glucose (UA) 1+ H Urine Ketones Negative Ur Blood (Man) Negative Urine Nitrate Negative Urine Bilirubin Negative Urine Urobilinogen 0.2 Leukocyte Esterase Rfl Trace H Urine RBC 0-2 Urine WBC 0-5 Ur Squamous Epith Cells None seen Urine Bacteria None seen Urine Casts 0-2 Influenza A (RT-PCR) Influenza B (RT-PCR) RSV (RT-PCR) SARS-CoV-2 RNA (RT-PCR) 03/11/24 03/11/24 03/11/24 13:34 15:45 18:00 WBC RBC Hgb Hct MCV MCH MCHC RDW Plt Count MPV Immature Gran % (Auto) Neut % (Auto) Lymph % (Auto) Grimes % (Auto) Eos % (Auto) Baso % (Auto) Lymph # (Auto) Grimes # (Auto) Eos # (Auto) Baso # (Auto) Abs Immat Gran (auto) Absolute Neuts (auto) Absolute Nucleated RBC Nucleated RBC % Sodium Potassium Chloride Carbon Dioxide Anion Gap BUN Creatinine Estim Creat Clear Calc Estimated GFR Glucose POC Capillary Glucose 51 L* Hemoglobin A1c Calcium Magnesium Total Bilirubin AST ALT Alkaline Phosphatase Troponin I NT-Pro-B Natriuret Pep Cancelled Total Protein 7.0 Albumin 4.2 Urine Color Urine Appearance Urine pH Ur Specific Laughlin Urine Protein Urine Glucose (UA) Urine Ketones Ur Blood (Man) Urine Nitrate Urine Bilirubin Urine Urobilinogen Leukocyte Esterase Rfl Urine RBC Urine WBC Ur Squamous Epith Cells Urine Bacteria Urine Casts Influenza A (RT-PCR) Negative Influenza B (RT-PCR) Negative RSV (RT-PCR) Negative SARS-CoV-2 RNA (RT-PCR) Negative 03/11/24 03/11/24 03/11/24 18:29 18:44 21:12 WBC RBC Hgb Hct MCV MCH MCHC RDW Plt Count MPV Immature Gran % (Auto) Neut % (Auto) Lymph % (Auto) Grimes % (Auto) Eos % (Auto) Baso % (Auto) Lymph # (Auto) Grimes # (Auto) Eos # (Auto) Baso # (Auto) Abs Immat Gran (auto) Absolute Neuts (auto) Absolute Nucleated RBC Nucleated RBC % Sodium Potassium Chloride Carbon Dioxide Anion Gap BUN Creatinine Estim Creat Clear Calc Estimated GFR Glucose POC Capillary Glucose 86 169 H Hemoglobin A1c Calcium Magnesium Total Bilirubin AST ALT Alkaline Phosphatase Troponin I < 0.012 NT-Pro-B Natriuret Pep Total Protein Albumin Urine Color Urine Appearance Urine pH Ur Specific Laughlin Urine Protein Urine Glucose (UA) Urine Ketones Ur Blood (Man) Urine Nitrate Urine Bilirubin Urine Urobilinogen Leukocyte Esterase Rfl Urine RBC Urine WBC Ur Squamous Epith Cells Urine Bacteria Urine Casts Influenza A (RT-PCR) Influenza B (RT-PCR) RSV (RT-PCR) SARS-CoV-2 RNA (RT-PCR) 03/11/24 03/12/24 03/12/24 22:40 04:59 05:40 WBC 8.1 RBC 4.33 Hgb 12.6 Hct 38.8 MCV 89.6 MCH 29.1 MCHC 32.5 RDW 14.1 Plt Count 351 MPV 9.1 Immature Gran % (Auto) 0.2 Neut % (Auto) 56.8 Lymph % (Auto) 30.0 Grimes % (Auto) 9.2 H Eos % (Auto) 2.8 Baso % (Auto) 1.0 Lymph # (Auto) 2.44 Grimes # (Auto) 0.8 H Eos # (Auto) 0.2 Baso # (Auto) 0.1 Abs Immat Gran (auto) 0.02 Absolute Neuts (auto) 4.6 Absolute Nucleated RBC 0.000 Nucleated RBC % 0.0 Sodium 135 L Potassium 3.7 Chloride 99 Carbon Dioxide 32 H Anion Gap 4 BUN 17 Creatinine 0.54 L Estim Creat Clear Calc 64 Estimated GFR > 60 Glucose 57 L* POC Capillary Glucose 64 L Hemoglobin A1c 6.8 H Calcium 8.1 L Magnesium 1.6 Total Bilirubin AST ALT Alkaline Phosphatase Troponin I NT-Pro-B Natriuret Pep Total Protein Albumin Urine Color Urine Appearance Urine pH Ur Specific Laughlin Urine Protein Urine Glucose (UA) Urine Ketones Ur Blood (Man) Urine Nitrate Urine Bilirubin Urine Urobilinogen Leukocyte Esterase Rfl Urine RBC Urine WBC Ur Squamous Epith Cells Urine Bacteria Urine Casts Influenza A (RT-PCR) Influenza B (RT-PCR) RSV (RT-PCR) SARS-CoV-2 RNA (RT-PCR) 03/12/24 06:00 WBC RBC Hgb Hct MCV MCH MCHC RDW Plt Count MPV Immature Gran % (Auto) Neut % (Auto) Lymph % (Auto) Grimes % (Auto) Eos % (Auto) Baso % (Auto) Lymph # (Auto) Grimes # (Auto) Eos # (Auto) Baso # (Auto) Abs Immat Gran (auto) Absolute Neuts (auto) Absolute Nucleated RBC Nucleated RBC % Sodium Potassium Chloride Carbon Dioxide Anion Gap BUN Creatinine Estim Creat Clear Calc Estimated GFR Glucose POC Capillary Glucose 85 Hemoglobin A1c Calcium Magnesium Total Bilirubin AST ALT Alkaline Phosphatase Troponin I NT-Pro-B Natriuret Pep Total Protein Albumin Urine Color Urine Appearance Urine pH Ur Specific Laughlin Urine Protein Urine Glucose (UA) Urine Ketones Ur Blood (Man) Urine Nitrate Urine Bilirubin Urine Urobilinogen Leukocyte Esterase Rfl Urine RBC Urine WBC Ur Squamous Epith Cells Urine Bacteria Urine Casts Influenza A (RT-PCR) Influenza B (RT-PCR) RSV (RT-PCR) SARS-CoV-2 RNA (RT-PCR) Quality VTE Prophylaxis VTE prophylaxis: pharmacologic ordered (on apixaban) Hospitalist [facility] Advance Care Plan I have confirmed that the patient's Advanced Care Plan is present, code status is documented, or surrogate decision maker is listed in patient medical record.: Yes Medication Reconciliation I have utilized all available resources to obtain, update and review the patients current medications (includes all prescriptions, OTC, herbals, cannabis, and nutritional supplements).: Yes
--- NOTE | 2024-03-12 08:09 | PHAR ---
Pharmacy verified home meds: * Use from home * Mycophenolate Sodium 360 mg tablet,delayed release (DR/EC) - take 1 tablet by mouth twice daily * Use from home * Tacrolimus 1 mg capsule - take 1 capsule by mouth twice a day along with 0.5 mg capsule (total dose 1.5 mg) * Use from home * Tacrolimus 0.5mg capsule - take 1 capsule by mouth twice a day along with 1 mg capsule (total dose 1.5 mg)
[2024-03-12 08:23] LABS: Glucose Point of Care 113 mg/dl (65-105)
[2024-03-12] MEDS: FUROSEMIDE 40 MG TABLET PO (09:29)
[2024-03-12] MEDS: MIRABEGRON 50 MG ER TABLET PO (09:29)
[2024-03-12] MEDS: LOSARTAN POTASSIUM 25 MG TABLET PO (09:29)
[2024-03-12] MEDS: ASPIRIN 81 MG ENTERIC TABLET PO (09:29)
[2024-03-12] MEDS: MAGNESIUM OXIDE 400 MG TABLET PO (09:29)
[2024-03-12] MEDS: OMEGA 3 POLYUNSAT FATTY ACIDS 1 GM CAP PO ×2 (09:29→17:30)
[2024-03-12] MEDS: APIXABAN 5 MG TABLET PO ×2 (09:29→20:39)
[2024-03-12] MEDS: CHOLECALCIFEROL 1,000 UNITS TABLET 2000 UNITS PO (09:29)
[2024-03-12] MEDS: ASCORBIC ACID 500 MG TABLET PO (09:29)
[2024-03-12] MEDS: PANTOPRAZOLE 40 MG TABLET PO (09:29)
[2024-03-12] MEDS: METOPROLOL SUCCINATE EXT REL 25 MG TABCR PO ×2 (09:30→20:40)
[2024-03-12] MEDS: MYCOPHENOLATE SODIUM 360 MG 360 EACH PO ×2 (09:31→20:40)
[2024-03-12] MEDS: TACROLIMUS 1 MG 1 EACH PO ×2 (09:32→20:40)
[2024-03-12] MEDS: TACROLIMUS 0.5 MG 0.5 EACH PO ×2 (09:32→20:40)
[2024-03-12] MEDS: DOXYCYCLINE HYCLATE 100 MG TABLET PO ×2 (09:37→20:40)
[2024-03-12 12:21] LABS: Glucose Point of Care 226 mg/dl (65-105)
[2024-03-12] MEDS: MULTIVITAMINS THERAPEUTIC TAB (*BKC) 1 TABLET PO (12:24)
[2024-03-12] MEDS: INSULIN ASPART (*BKC) 100 UNITS/ML SUB-Q ×2 (13:04→20:40)
[2024-03-12 17:25] LABS: Glucose Point of Care 159 mg/dl (65-105)
[2024-03-12] MEDS: VENLAFAXINE HCL XR 75 MG CAP.ER.24H 150 MG PO (17:30)
[2024-03-12] MEDS: ATORVASTATIN 40 MG TABLET PO (17:30)
[2024-03-12 19:56] LABS: Glucose Point of Care 215 mg/dl (65-105)
[2024-03-12] MEDS: GABAPENTIN 300 MG CAPSULE PO (20:39)
[2024-03-12] MEDS: MELATONIN 5 MG TABLET PO (20:40)
[2024-03-13] VITALS: PULSE 60
[2024-03-13 04:00] VITALS: PULSE 62
[2024-03-13 04:39] VITALS: BP 130/50; PULSE 60; RESP 17; TEMP 37; O2SAT 95
[2024-03-13 08:00] VITALS: PULSE 60
[2024-03-13 08:23] LABS: Glucose Point of Care 127 mg/dl (65-105)
[2024-03-13 09:39] LABS: Anion Gap 8 mmol/L (4-12); Blood Urea Nitrogen 18 mg/dL (7-17); Calcium 8.7 mg/dL (8.4-10.2); Carbon Dioxide 31 mmol/L (22-30); Chloride 96 mmol/L (98-107); Estimated CRCL calculation 59 ml/min; Estimated Glomerular Filt Rate > 60; Glucose 138 mg/dL (65-110); Potassium 4.1 mmol/L (3.4-5.0); Sodium 135 mmol/L (137-145)
[2024-03-13] MEDS: CHOLECALCIFEROL 1,000 UNITS TABLET 2000 UNITS PO (09:46)
[2024-03-13 09:47] VITALS: PULSE 64
[2024-03-13] MEDS: OMEGA 3 POLYUNSAT FATTY ACIDS 1 GM CAP PO (09:47)
[2024-03-13] MEDS: MAGNESIUM OXIDE 400 MG TABLET PO (09:47)
[2024-03-13] MEDS: LOSARTAN POTASSIUM 25 MG TABLET PO (09:47)
[2024-03-13] MEDS: APIXABAN 5 MG TABLET PO (09:47)
[2024-03-13] MEDS: MIRABEGRON 50 MG ER TABLET PO (09:47)
[2024-03-13] MEDS: METOPROLOL SUCCINATE EXT REL 25 MG TABCR PO (09:47)
[2024-03-13] MEDS: ASPIRIN 81 MG ENTERIC TABLET PO (09:48)
[2024-03-13] MEDS: FUROSEMIDE 40 MG TABLET PO (09:48)
[2024-03-13] MEDS: PANTOPRAZOLE 40 MG TABLET PO (09:48)
[2024-03-13] MEDS: ASCORBIC ACID 500 MG TABLET PO (09:48)
[2024-03-13] MEDS: MYCOPHENOLATE SODIUM 360 MG 360 EACH PO (09:49)
[2024-03-13] MEDS: DOXYCYCLINE HYCLATE 100 MG TABLET PO (09:49)
[2024-03-13] MEDS: TACROLIMUS 1 MG 1 EACH PO (09:50)
[2024-03-13] MEDS: TACROLIMUS 0.5 MG 0.5 EACH PO (09:50)
--- NOTE | 2024-03-13 09:53 | P.DS_ITS ---
DS: Admitting Diagnosis Discharge Date 03/13/24 Admitting Diagnosis Pneumonia, Hypoxia, PAF, DM2, S/P Renal Transplant DS: Discharge Diagnosis Discharge Diagnosis (1) Hypoxia: Code(s): R09.02 - Hypoxemia Status: Resolved Assessment and Plan: Pt now on room air without any supplemental oxygen need. Stable for discharge to home. (2) Pneumonia: Qualifiers: Laterality: unspecified laterality Lung location: lower lobe of lung Pneumonia type: due to unspecified organism Qualified Code(s): J18.9 - Pneumonia, unspecified organism Code(s): J18.9 - Pneumonia, unspecified organism Status: Acute Assessment and Plan: 03/13/24: * Pt stable, now without any supplemental oxygen. * Stable for discharge. * Will continue Azithromycin and will add Ceftin. * Follow up with PCP at discharge. Started on empiric Cefepime x1 dose, changed to Ceftiraxone --continue Ceftriaxone --Add azithro 03/11 chest xray Airspace opacities in right lower lung zone and left mid and lower lung zones, consistent with atelectasis versus pneumonia (3) Near syncope: Code(s): R55 - Syncope and collapse Status: Acute Assessment and Plan: 03/13/24: * Pt does not have orthostatic hypotension. * Telemetry has been stable. * Normal Neuro exam. * Pacemaker functioning normally. * Pt now asymptomatic. * Suspect reason for near syncope was acute infection. * Discharge to home. Several days of sinus and neck pressure before admission., intermittent dizziness. Started on meclizine yesterday by PCP. At the store she felt weak, lightheaded, dizzy, nauseated, and warm. Pale and clammy. Nystagmus noted on exam. Symptoms could be vagal with sweating and feeling of warmth, or could be 2/2 hypoglycemia --Pacemaker interrogation. Patient unsure about type of pacer --orthostatic VS --Monitor on tele (4) Insulin dependent type 2 diabetes mellitus: Code(s): E11.9 - Type 2 diabetes mellitus without complications; Z79.4 - assisted (current) use of insulin Status: Acute Assessment and Plan: Tresiba 25 units hs, Novolog 7units TID, semaglutide 0.25mg weekly --Lantus held AM 03/12, resume 10 units in the morning 03/13 --Resume mealtime insulin when able -- SSI --community educator and video conference specialist consults (5) Paroxysmal atrial fibrillation: Code(s): I48.0 - Paroxysmal atrial fibrillation Status: Acute Assessment and Plan: Home meds: Metoprolol 25mg q12, Eliquis 5mg BID --continuing home meds (6) Chronic anticoagulation: Code(s): Z79.01 - assisted (current) use of anticoagulants Status: Acute Assessment and Plan: On eliquis 5mg BID (7) Status post kidney transplant: Code(s): Z94.0 - Kidney transplant status Status: Acute Assessment and Plan: Home meds: mycophenolate 360mg BID, tacrolimus 1.5mg q12 --Continue home meds --tacrolimus level in AM --Follow BMP daily Plan DS: Summary Hospital Course Reason for hospitalization: Hypoxia and PNA Hospital Course: [facility] [address] [place] [address] History & Physical Report Signed Patient: Jasmyne Boogie MR#: [id number] : 1940 Acct:[id number] Age: 83 ADM Date: 03/11/24 Loc: [id number] 256-[address]: Katherine Canales M.D. cc: Jimbo Lin MD; Gideon East MD; Katherine Canales MD~ H&P: HPI History of Present Illness Date/Time: 03/11/24 16:00 Chief Complaint: Dizzy. Narrative: This pleasant 83-year-old female with history of insulin-dependent type 2 diabetes mellitus, coronary artery disease, hypertension, hyperlipidemia, paroxysmal atrial fibrillation on chronic anticoagulation, breast cancer, and kidney transplant who presented to the emergency department 03/11/24 via EMS from a local establishment for evaluation of dizziness. For several days prior, the patient had pressure in her sinuses and the back of her neck as well as intermittent dizziness. Coincidentally she had a routine appointment with her primary care provider the day before at which time she was prescribed meclizine and an antibiotic for presumed sinusitis. The morning of presentation to the ER, the patient felt well enough to go shopping with her daughter and while at the store she began to feel weak, lightheaded, dizzy, nauseated, and warm. Daughter reported that the patient was pale and clammy and she gave the patient orange juice as she was concerned that her glucose perhaps had dropped. Within 5 minutes she was still feeling poorly and they called 911. On EMS arrival her blood pressure was stable glucose was reportedly 106. All symptoms have resolved by the time pt arrived to ER. Her workup in ER subsequently demonstrated mild hypoxia and workup showed PNA. She was started on abx, supplemental oxygen and was admitted to the hospital. Her telemetry has been stable during her hosptialization and she has resumed all home meds. She has been weaned to RA and is stable with her sats. She has no complaints of dizziness and has been able to tolerate oral intake and walk around independently. Pt is stable for discharge today to home with oral abx. Status at Discharge Cognitive/behavioral status at discharge: At baseline Functional status at discharge: independent ambulation Overall status at discharge: patient is back to baseline Time Spent with Patient Time attestation: Total time spent providing and/or coordinating discharge services: Time spent: Greater than 30 minutes Specific discharge activities: Follow up, abx therapy, return to ER precautions Exam Narrative: General: Well-developed, nontoxic-appearing elderly female appearing younger than her stated age sitting up in bed in no acute distress. HEENT: PERRL, EOMI. Sclera anicteric. Oral mucosa moist. Oropharynx clear. Neck: Supple. Respiratory: Lungs are clear to auscultation bilaterally. Cardiovascular: Regular rate and rhythm with S1-S2. Pacemaker in left anterior chest. Gastrointestinal: Abdomen is soft, nontender, and nondistended with positive bowel sounds. Skin: Warm and dry. No rash or lesions on limited exam. Extremities: No cyanosis, clubbing, or edema. Radial and pedal pulses intact. Neurological: Alert. No facial asymmetry. Speech is clear. No pronator drift. Cranial nerves 2-12 are grossly intact. No gross focal deficits to casual conversation. Strength 5/5 in upper and lower extremities. Psychiatric: Pleasant and cooperative with normal mood and affect. She is in good spirits. DS: Data Data Completed and Pending Completed studies during hospitalization: ITS Impressions Chest X-Ray 03/11/24 12:34 IMPRESSION: 1. Airspace opacities in right lower lung zone and left mid and lower lung zones, consistent with atelectasis versus pneumonia. Labs on day of discharge: Labs from last 24 hours 03/13/24 03/13/24 03/12/24 08:12 05:55 19:52 Sodium 135 L Potassium 4.1 Chloride 96 L Carbon Dioxide 31 H Anion Gap 8 BUN 18 H Creatinine 0.58 L Estim Creat Clear Calc 59 Estimated GFR > 60 Glucose 138 H POC Capillary Glucose 127 H 215 H Calcium 8.7 Tacrolimus Pending 03/12/24 03/12/24 16:58 12:16 Sodium Potassium Chloride Carbon Dioxide Anion Gap BUN Creatinine Estim Creat Clear Calc Estimated GFR Glucose POC Capillary Glucose 159 H 226 H Calcium Tacrolimus Preliminary micro results at discharge 03/11/24 15:02 Blood Culture - Preliminary Blood 03/11/24 15:44 Blood Culture - Preliminary Blood Discharge Plan Discharge Attending physician on discharge: Jeanie Slater Discharging Clinician: Jeanie Slater Anticipated Discharge Date/Time: 03/13/24 10:16 Patient Disposition: Home, Self-Care Activity: as tolerated Diet: heart healthy Discharge Instructions: Thank you for allowing us to care for you during your hospitalization. You were found to have a pneumonia, and have improved in your overall condition. You received IV antibiotics here and are being discharged to home with oral antibiotics. Please take them as ordered and follow up with your PCP this week. If any new or worsening symptoms, return to the ER. Take this time to increase fluids and get plenty of rest to fully recover. Patient Instructions: Antibiotic Form, Apixaban (By mouth) Patient Language: Nigerian Stand Alone Forms: General Discharge Information Follow-up/Referrals: Gideon East MD [Primary Care Provider] - Call for Appointment Discharge Medications: New azithromycin 500 mg tablet 500 mg PO DAILY 7 Days Qty: 7 0RF cefuroxime axetil 500 mg tablet 500 mg PO BID Qty: 20 0RF Continued atorvastatin 40 mg tablet 40 mg PO QPM venlafaxine 150 mg capsule,extended release 24hr 150 mg PO QPM (DME) OneTouch Verio test strips Strip MISCELLANEOUS pantoprazole 40 mg tablet,delayed release (DR/EC) 40 mg PO DAILY losartan 25 mg tablet 25 mg PO DAILY gabapentin 300 mg capsule 300 mg PO HS furosemide 20 mg tablet 40 mg PO DAILY metoprolol succinate 25 mg tablet extended release 24 hr 25 mg PO Q12H tacrolimus 1 mg capsule 1 mg PO Q12H tacrolimus 0.5 mg capsule 0.5 mg PO Q12H Patient Comments: total 1.5mg dose mycophenolate sodium 360 mg tablet,delayed release (DR/EC) 360 mg PO Q12H (DME) lancets [OneTouch Delica Plus Lancet] 33 gauge misc MISCELLANEOUS Eliquis 5 mg tablet 5 mg PO Q12H aspirin 81 mg capsule 81 mg PO DAILY [id number] 333-133-5 mg tablet 1 tablet PO DAILY omega [id number]-fish oil [Fish Oil] 1,000 (120-180) mg capsule 1 cap PO BID magnesium 200 mg tablet 400 mg PO DAILY melatonin 5 mg tablet 5 mg PO HS mirabegron [Myrbetriq] 50 mg tablet extended release 24 hr 50 mg PO DAILY multivitamin Tablet 1 tablet PO DAILY Ozempic 0.25 mg or 0.5 mg(2 mg/1.5 mL) pen injector 0.25 mg subcut WEEKLY Patient Comments: takes on Mondays Rx Instructions: for 4 weeks Veltassa 8.4 gram powder in packet 8.4 g PO DAILY ascorbic acid (vitamin C) [C-500] 500 mg tablet 500 mg PO DAILY cholecalciferol (vitamin D3) [Vitamin D3] 50 mcg (2,000 unit) capsule 50 mcg PO DAILY insulin degludec [Tresiba FlexTouch U-100] 100 unit/mL (3 mL) insulin pen 50 unit subcut HS insulin aspart U-100 [Novolog FlexPen U-100 Insulin] 100 unit/mL (3 mL) insulin pen 7 unit subcut TID Patient Comments: before meals Date of admission: 03/12/24 18:24 Primary Care Provider: Gideon East Admitting Provider: Katherine Canales Attending physician on admission: Jeanie Slater Condition: Guarded Prognosis Quality VTE Prophylaxis VTE prophylaxis: pharmacologic ordered Hospitalist MIPS Heart Failure (Exclusion) Patient has history of Heart Transplant or Left Ventricular Assistive Device?: No IF YES, STOP HERE Heart Failure (Qualifier) Patient has current or prior documentation of LVEF less than or equal to 40%, or mod/servere depressed LVSF?: No IF NO, STOP HERE
[2024-03-13] MEDS: INSULIN GLARGINE (*BKC) 100 UNITS/ML 10 UNITS SUB-Q (09:56)
[2024-03-13 12:00] VITALS: PULSE 79
[2024-03-13 12:15] LABS: Glucose Point of Care 265 mg/dl (65-105)
[2024-03-13] MEDS: MULTIVITAMINS THERAPEUTIC TAB (*BKC) 1 TABLET PO (12:41)
[2024-03-13] MEDS: INSULIN ASPART (*BKC) 100 UNITS/ML SUB-Q (12:41)
[2024-03-14 15:13] LABS: Tacrolimus Prograf 7.6 mcg/L
--- NOTE | 2024-03-15 16:51 | PCCDE ---
Consult received 03/13 for diabetes education however pt was discharged on 03/13. Called pt's home number today and was able to leave a message to return the call if any questions r/t diabetes. Will be available per request.
== END 2024-03-13 13:44 | disposition home or self-care (01) | DRG 194 ==
LOC: ANHED 12:44 → ANH3MEDSUR 16:28 → ANH2MED 17:05
PROVIDERS: Emergency Medicine; Nurse Practitioner Acute Care; Physician Assistant; Admitting Provider Hospitalist; Emergency Provider Preventive Medicine Aerospace Medicine; PCP Pediatrics; Visit Provider Nurse Practitioner Adult Health
DX: J18.9 Pneumonia, unspecified organism (principal); Z94.0 Kidney transplant status; R09.02 Hypoxemia; I48.0 Paroxysmal atrial fibrillation; R55 Syncope and collapse; E11.649 Type 2 diabetes mellitus with hypoglycemia without coma; I10 Essential (primary) hypertension; E78.5 Hyperlipidemia, unspecified; I25.10 Atherosclerotic heart disease of native coronary artery without angina pectoris; H55.00 Unspecified nystagmus; Z79.01 Long term (current) use of anticoagulants; Z79.4 Long term (current) use of insulin; Z95.0 Presence of cardiac pacemaker; Z85.3 Personal history of malignant neoplasm of breast
CPT/HCPCS: 36415; 71045; 80048; 80053; 80197; 81001; 82948; 83036; 83735; 83880; 84484; 85025; 87040; 87637; 93005; 96365; 96367; 99285; A9270; G0378; J0692; J0696; J1815